=== PATIENT | male | born 1945 | race Caucasian/White ===

== ENCOUNTER 2019-02-23 14:50 | Outpatient (CLI) | payer BC ==
[~2019-02-23] VITALS: Ht 175 cm; Wt 104.5 kg
[~2019-02-23 14:50] MED LIST: ACIPHEX; ASP81CT PO; ASPI-586 PO; DIGO125T PO; FLUD0.1T7 PO; HYDR-3583 PO; MTP25TSR PO; NFNEB10T PO; SULF1TAB38 PO
== END 2019-02-23 14:59 | disposition home or self-care (01) ==
LOC: PREOP 14:50
PROVIDERS: ATTEND Internal Medicine
DX: Z01.818 Encounter for other preprocedural examination (principal)

== ENCOUNTER 2022-09-01 17:38 | Emergency (ER) | payer MEDICARE, OTHER ==
[~2022-09-01] VITALS: Ht 172 cm; Wt 111.0 kg
--- NOTE | 2022-09-01 19:03 | ED Lower Extremity ---
General Chief Complaint: Abdominal/GI Problems Stated Complaint: CUT ON LEFT LEG Source: patient Exam Limitations: no limitations History of Present Illness Date Seen by Provider: Sep 01, 2022 Time Seen by Provider: 19:01 Initial Comments Patient is a 77-year-old male who presents ED with a laceration to his left lower leg. Around 1030 this morning he was cutting wood with a wedge. States he drove a wedge into a piece of wood when it popped out hitting his lower rowe. Patient had immediate bleeding. Applied pressure continued throughout his day noted bleeding through his gauze. Denies of any pain. He is not up-to-date on his tetanus. Denies of any fever, chills, lower leg pain. Patient does take a blood thinner Xarelto. Allergies and Home Medications Allergies Coded Allergies: Penicillins (Verified Allergy, Mild, RASH/SWELLING, 02/23/19) Patient Home Medication List Home Medication List Reviewed: Yes Aspirin (Aspir 81) 81 Mg Tablet.dr, 81 MG PO DAILY, (Reported) Entered as Reported by: DURGA CHING on 02/23/19 144 Cephalexin (Cephalexin) 500 Mg Tablet, 500 MG PO QID Prescribed by: CHUY MARCOS on 09/01/221954 Review of Systems Constitutional: No chills, No fever, No malaise EENTM: No ear pain, No blurred vision, No double vision Respiratory: No cough, No dyspnea on exertion Cardiovascular: No chest pain Gastrointestinal: No abdominal pain, No diarrhea, No nausea, No vomiting Genitourinary: No discharge, No dysuria Musculoskeletal: No back pain, No joint pain Skin: change in color All Other Systems Reviewed Negative Unless Noted: Yes Past Gtazxgh-Rohhrr-Yybjcc Hx Seasonal Allergies Seasonal Allergies: No Past Medical History Surgeries: Yes (right hand finger;hiatal hernia repair; heart abalation;) Abdominal, Cardiac, Orthopedic Respiratory: No Cardiac: Yes Atrial Fibrillation Neurological: No Reproductive Disorders: No Sexually Transmitted Disease: No HIV/AIDS: No Genitourinary: No Gastrointestinal: No Musculoskeletal: No Endocrine: No HEENT: No Cataract Loss of Vision: Denies Hearing Impairment: Denies Cancer: No Psychosocial: No Integumentary: No Blood Disorders: No Adverse Reaction/Blood Tranf: No (N/A) Physical Exam Vital Signs Vital Signs - First Documented 09/01/22 18:58 Temp 36.8 Pulse 66 Resp 18 B/P (MAP) 171/106 (127) Pulse Ox 95 O2 Delivery Room Air Capillary Refill : Less Than 3 Seconds Height, Weight, BMI Height: 5'9.00" Weight: 220lbs. oz. 99.061468qo; 37.00 BMI Method:Stated General Appearance: WD/WN, no apparent distress HEENT: PERRL/EOMI, normal ENT inspection, TMs normal, pharynx normal Neck: non-tender, full range of motion, supple Cardiovascular: regular rate, rhythm, no edema, no gallop, no JVD Respiratory: chest non-tender, lungs clear, normal breath sounds Gastrointestinal: normal bowel sounds, non tender, soft Legs: left leg other (1 cm superficial laceration to left lower leg mild bleeding. 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 Mild active bleeding. No surrounding tenderness) Procedures/Interventions Wound Location: Lower Extremities Wound Length (cm): 1 Wound's Depth, Shape: superficial Wound Explored: clean Irrigated w/ Saline (ccs): 200 Betadine Prep?: Yes Anesthesia: 1% Lidocaine Volume Anesthetic (ccs): 2 Suture: Ethlion Suture Size: 4-0 Number of Sutures: 2 Layer Closure?: 1 Progress/Results/Core Measures Results/Orders My Orders Orders - TRAY DE SANTIAGO Dipht,Pertuss(Acell),Tet Adult (Boostrix (09/01/22 19:15) Medications Given in ED Current Medications Medications Dose Ordered Sig/Mayra Route Start Time Stop Time Status Last Admin Dose Admin Diphtheria/ Tetanus/Acell Pertussis 0.5 ml ONCE ONCE IM 09/01/22 19:15 09/01/22 19:16 DC 09/01/22 19:35 0.5 ML Vital Signs/I&O 09/01/22 18:58 Temp 36.8 Pulse 66 Resp 18 B/P (MAP) 171/106 (127) Pulse Ox 95 O2 Delivery Room Air Blood Pressure Mean: 127 Departure Communication (PCP) Patient had a small 1 cm wound to his left lower leg. Extensive irrigation. Wound appears clean. Patient is on Xarelto. Due to the bleeding to 4-0 Ethilon sutures were placed to approximate the tissue and allow hemostasis. Patient tolerated procedure well. Procedure document note. Update his tetanus. Applied bandage and compression. Elevate leg for the next 24 to 48 hours. Con tinue with compression bandage. If bleeding continues or worsen to return back to ED. Bleeding did seen to stop after Coban was placed over a nonadherent. Keflex was provided at discharge if redness and swelling develops. Discussed with patient he does not necessarily need antibiotics. Impression Primary Impression: Leg laceration Disposition: 01 HOME, SELF-CARE Condition: Stable Departure-Patient Inst. Decision time for Depature: 19:54 Referrals: TORIBIO AVENDANO DO (PCP/Family) Primary Care Physician Patient Instructions: Laceration Repair With Stitches (DC) Add. Discharge Instructions: Remove sutures in 10 days. Keep the area covered over the next 24 hours. Elevate your leg for the next 2 or 3 days as much as you can. If bleeding apply gauze and the bandage to help compress the bleeding. All discharge instructions reviewed with patient and/or family. Voiced understanding. Scripts Cephalexin (Cephalexin) 500 Mg Tablet 500 MG PO QID for 7 Days, #28 TAB Prov: TRAY DE SANTIAGO 09/01/22 TRAY DE SANTIAGO Sep 01, 2022 19:03
[2022-09-01] MEDS ORDERED: TETANUS,DIPTH,PERTUSS P/F (BOOSTRIX) 0.5 ML VIAL IM ONE (19:15)
[2022-09-01] MEDS ORDERED: CEPH500T PO (19:55)
[2022-09-01 20:09] VITALS: BP 152/88
== END 2022-09-01 20:10 | disposition home or self-care (01) ==
LOC: EDUNIT# 17:38 → ER 17:41
DX: S81.812A Laceration without foreign body, left lower leg, initial encounter (principal); Z88.0 Allergy status to penicillin; Z79.01 Long term (current) use of anticoagulants; Z23 Encounter for immunization; W26.8XXA Contact with other sharp object(s), not elsewhere classified, initial encounter
CPT/HCPCS: 12001; 90715

== ENCOUNTER 2022-09-13 06:52 | Emergency (ER) | payer OTHER ==
[~2022-09-13] VITALS: Ht 175 cm; Wt 111.0 kg
[~2022-09-13 06:52] MED LIST changes: +CEPH500T PO
[2022-09-13 07:10] VITALS: BP 144/84
== END 2022-09-13 07:10 | disposition home or self-care (01) ==
LOC: EDUNIT# 06:52 → ER 06:56
DX: Z48.02 Encounter for removal of sutures (principal)